=== PATIENT | male | born 1960 | race Caucasian/White ===

== ENCOUNTER → 2020-04-13 | Day surgery (SDC) | payer OTHER ==
[2020-04-09 10:48] LABS: BASOPHILS % 0.5 % (0.0-1.0); EOSINOPHILS # (AUTO) 0.2 (0.0-0.4); HEMATOCRIT 41.3 % (38.2-49.6); LYMPHOCYTES # (AUTO) 3.2 (1.0-3.2); MEAN CORPUSCULAR HEMOGLOBIN 30.7 pg (28-32); MEAN CORPUSCULAR HGB CONC 33.9 g/dL (31-35); MEAN CORPUSCULAR VOLUME 90.6 fL (81-99); MONOCYTES # (AUTO) 0.6 (0.2-0.8); MONOCYTES % 7.3 % (4.4-11.3); NEUTROPHILS # (AUTO) 4.6 (2.1-6.9); NEUTROPHILS % 52.9 % (38.7-80.0); PLATELET COUNT 255 x10e3/uL (140-360); RED BLOOD COUNT 4.56 x10e6/uL (4.3-5.7); RED CELL DISTRIBUTION WIDTH 12.8 % (11.7-14.4)
[2020-04-09 11:16] LABS: ALANINE AMINOTRANSFERASE 28 IU/L (0-55); ALBUMIN/GLOBULIN RATIO 1.3 (0.8-2.0); ALKALINE PHOSPHATASE 73 IU/L (40-150); ANION GAP 9.7 mmol/L (8-16); BLOOD UREA NITROGEN 17 mg/dL (7-26); BUN/CREATININE RATIO 20 (6-25); CALCIUM 8.8 mg/dL (8.4-10.2); CARBON DIOXIDE 30 mmol/L (22-29); CHLORIDE 103 mmol/L (98-107); CREATININE, SERUM 0.87 mg/dL (0.72-1.25); EST GLOMERULAR FILTRATION RATE > 60 ML/MIN (60-); GLUCOSE 107 mg/dL (74-118); POTASSIUM 4.7 mmol/L (3.5-5.1); SODIUM 138 mmol/L (136-145)
[~2020-04-13] VITALS: Ht 167.6 cm; Wt 108.9 kg
[~2020-04-13] MED LIST: ALPRAZOLAM 0.5 MG TAB ONE; ASPIR 8181 MG PO; BENICAR20 MG PO; DIPHENHYDRAMINE HCL 25 MG CAP ONE; FENTANYL CITRATE/PF 100MCG/2 ML INJ ONE; HEPARIN SOD/SOD CHLORIDE 2,000 ML ONE; IOPAMIDOL 370 MG/ML 200 ML INFUS..BTL INJ ONE; LIDOCAINE HCL 2% LOCAL 20 ML VIAL ONE; MIDAZOLAM HCL 2 MG/2 ML VIAL ONE; NAPROXEN250 MG PO; SERTRALINE HCL100 MG PO; SODIUM CHLORIDE 0.9% 1000ML 1,000 ML ONE; VERAPAMIL HCL 2.5 MG/ML 2 ML VIAL ONE; ZYRTEC10 MG PO
[2020-04-13 09:19] VITALS: BP 111/44
--- NOTE | 2020-04-13 09:19 | NUR ---
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 Bedside report received from Luis F CUTLER. [id number]. Alert oriented and appropriate, PERRLA, respirations even and unlabored to room air. Pulses x4 extremities equal and strong. Pedal pulses PT/DP X4 Cap fill brisk < 3 sec. Rt tr band 13cc in band.No gross issues pain,pallor,pressure or dysrhythmia. Skin warm and dry integrity appears D/I. IV 20g to left hand presents healthy w/o s/s of infiltration or complaint. Abdomen soft and supple. pt offered toileting, denies need to urinate or defecate. No personal affects with patient. Family at bedside. Pt and family verbalizes understanding of POC. Currently w/o complaint of pain or need. ds/rn
[2020-04-13 09:30] VITALS: BP 140/70
--- NOTE | 2020-04-13 09:51 | Operative Report ---
DATE OF PROCEDURE: 04/13/2020 SURGEON: Yuri Neil MD INDICATION: Coronary artery disease, abnormal stress test. PROCEDURES PERFORMED: 1. Conscious sedation, 35 minutes. 2. Left heart catheterization, selective coronary angiography. 3. Deployment of right wrist TR band. COMPLICATIONS: None. BLOOD LOSS: Minimal. RECOMMENDATIONS: Coronary artery bypass surgery along with surgical aortic valve replacement. DESCRIPTION OF PROCEDURE: Access obtained in the right radial artery, a 5-[place] sheath was placed. Coronary angiography demonstrated heavily calcified aortic anulus in aorta. Dual ostia of the left anterior descending and circumflex arteries were noted. Ostial left anterior descending artery is 90% stenosis, proximal left anterior descending artery is 70% stenosis. Circumflex had mild disease. Right coronary artery is distal 90% stenosis. The LV end-diastolic pressure was 24, 40 mm [id number] gradient across the aortic valve on pullback. Right wrist TR band applied. The patient discharged home same day. MD GUTIERREZ Mcduffie/MODL /[id number]
[2020-04-13 10:00] VITALS: BP 110/77
--- NOTE | 2020-04-13 10:00 | NUR ---
1000amRADIAL/PEDAL COMPRESSION REMOVAL NOTE: Initial Cuff volume 13 cc 10am -3cc Removed No hematoma/bleeding noted with normal neurovascular function. 1015am -5cc Removed No hematoma/ bleeding noted with normal neurovascular function. 1030am -5cc Removed No hematoma/bleeding noted with normal neurovascular function. Air removal completed. Stasis achieved sterile 2x2,Tegaderm, Coban dressing No hematoma, bleeding noted with normal neurovascular function. Wrist splint in place. Pt instructed on POC. Ds/Rn
[2020-04-13 10:30] VITALS: BP 143/77
[2020-04-13 10:45] VITALS: BP 108/77
--- NOTE | 2020-04-13 10:45 | NUR ---
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 Rt arm assessed for s/s of complication and presence of hematoma. Skin warm, dry, no discolor, and pulses present. IV removed from left hand. Distal tip appears intact. VS WNL. Pt denies pain, sob, or need at this time. Family at BS. Review of discharge paperwork and follow up instructions. verbalized understanding. Pt to wheelchair and transported to front of hospital. Transferred to private vehicle under own strength w/o incident with DC paperwork in hand. -gianluca/saurabh
== END | disposition home or self-care (01) ==
LOC: CATH LAB 06:55 → EDBD 15:00
PROVIDERS: ATTEND Internal Medicine Interventional Cardiology
DX: I25.119 Atherosclerotic heart disease of native coronary artery with unspecified angina pectoris (principal); R94.39 Abnormal result of other cardiovascular function study; I10 Essential (primary) hypertension; I35.9 Nonrheumatic aortic valve disorder, unspecified; Z01.812 Encounter for preprocedural laboratory examination; Z11.59 Encounter for screening for other viral diseases; Z79.899 Other long term (current) drug therapy; Z79.82 Long term (current) use of aspirin; Z82.49 Family history of ischemic heart disease and other diseases of the circulatory system
CPT/HCPCS: 36415; 80053; 85025; 87635; 93458; C1769 ×2; C1887; J2001; J2250; J3010; J7030; Q9967; 99152; 99153

== ENCOUNTER → 2024-09-11 | Day surgery (SDC) | payer BC ==
[~2024-09-11] MED LIST changes: -ALPRAZOLAM 0.5 MG TAB ONE; +ATORVASTATIN CA20 MG PO; +CIALIS5 MG; -DIPHENHYDRAMINE HCL 25 MG CAP ONE; -FENTANYL CITRATE/PF 100MCG/2 ML INJ ONE; -HEPARIN SOD/SOD CHLORIDE 2,000 ML ONE; -IOPAMIDOL 370 MG/ML 200 ML INFUS..BTL INJ ONE; -LIDOCAINE HCL 2% LOCAL 20 ML VIAL ONE; +LIDOCAINE HCL 2% LOCAL INJ 5 ML SDV VIAL INJ ONE; +METOPROLOL TART50 MG PO; +PROPOFOL IV EMULSION 10 MG/ML 20 ML VIAL ONE; +PROPOFOL IV EMULSION 50 ML IV ONE; -SODIUM CHLORIDE 0.9% 1000ML 1,000 ML ONE; -VERAPAMIL HCL 2.5 MG/ML 2 ML VIAL ONE; +WARFARIN SODIUM3 MG PO
[2024-09-11] MEDS: LACTATED RINGER'S 1,000 ML ONE (07:45)
[2024-09-11 08:20] LABS: INR 0.97; PROTHROMBIN TIME 13.5 seconds (11.9-14.5)
[2024-09-11 08:21] LABS: PARTIAL THROMBOPLASTIN TIME 32.2 seconds (23.8-35.5)
[2024-09-11 10:17] VITALS: TEMP 98.3
[2024-09-11 10:45] VITALS: BP 103/59; PULSE 48; RESP 16; O2SAT 98
== END | disposition home or self-care (01) ==
LOC: OR 06:52
PROVIDERS: ATTEND Internal Medicine Gastroenterology
DX: Z12.11 Encounter for screening for malignant neoplasm of colon (principal); D12.3 Benign neoplasm of transverse colon; K64.8 Other hemorrhoids; I25.810 Atherosclerosis of coronary artery bypass graft(s) without angina pectoris; I10 Essential (primary) hypertension; R00.1 Bradycardia, unspecified; I38 Endocarditis, valve unspecified; Z78.9 Other specified health status; E66.9 Obesity, unspecified; F32.A Depression, unspecified; Z01.810 Encounter for preprocedural cardiovascular examination; Z79.1 Long term (current) use of non-steroidal anti-inflammatories (NSAID); Z79.01 Long term (current) use of anticoagulants; Z79.899 Other long term (current) drug therapy; Z68.41 Body mass index [BMI] 40.0-44.9, adult; Z95.1 Presence of aortocoronary bypass graft
CPT/HCPCS: 36415; 45385; 85610; 85730; 88305; 93005; J2003; J2250; J2704; J7121; 45378